=== PATIENT | male | born 1990 | race Two or more races ===

== ENCOUNTER 2018-06-30 08:55 | Emergency (ER) | payer SELFPAY ==
[~2018-06-30] VITALS: Ht 167.6 cm; Wt 72.6 kg
[2018-06-30 09:16] VITALS: BP 131/83
[2018-06-30] MEDS ORDERED: HYDR-3164 PO (09:25)
[2018-06-30] MEDS ORDERED: AMOX500C PO (09:25)
[2018-06-30] MEDS ORDERED: IBUP-1060 PO (09:25)
--- NOTE | 2018-06-30 09:26 | PHYS DOC ---
Adult General Chief Complaint Chief Complaint: DENTAL PROBLEM HPI HPI Patient is a 28 year old M who is here with lower left dental pain and jaw swelling. Pt reports no known dental injury but has had some pain in this tooth for a while. The swelling started over the weekend and feels like it hurts up i nto the ear. Review of Systems Review of Systems Constitutional: Denies fever or chills [] Eyes: Denies change in visual acuity, redness, or eye pain [] HENT: Reports dental and ear pain. Respiratory: Denies cough or shortness of breath [] Cardiovascular: No additional information not addressed in HPI [] GI: Denies abdominal pain, nausea, vomiting, bloody stools or diarrhea [] Musculoskeletal: Denies back pain or joint pain [] Integument: Denies rash or skin lesions [] Neurologic: Denies headache, focal weakness or sensory changes [] All other systems were reviewed and found to be within normal limits, except as documented in this note. Allergies Allergies Allergies Coded Allergies Type Severity Reaction Last Updated Verified No Known Drug Allergies 06/30/18 No Physical Exam Physical Exam Constitutional: Well developed, well nourished, no acute distress, non-toxic appearance. [] HENT: Pt has widespread dental decay. His lower left tooth is carious and gum around tooth is inflamed and indurated. No fluctuance noted. TM normal B Neck: Normal range of motion, no tenderness, supple, no stridor. [] Cardiovascular:Heart rate regular rhythm, no murmur [] Lungs & Thorax: Bilateral breath sounds clear to auscultation [] Abdomen: Bowel sounds normal, soft, no tenderness, no masses, no pulsatile masses. [] Skin: Warm, dry, no erythema, no rash. [] Back: No tenderness, no CVA tenderness. [] Extremities: No tenderness, no cyanosis, no clubbing, ROM intact, no edema. [] Neurologic: Alert and oriented X 3, normal motor function, normal sensory function, no focal deficits noted. [] Psychologic: Affect normal, judgement normal, mood normal. [] Current Patient Data Vital Signs Vital Signs Date Time Temp Pulse Resp B/P (MAP) Pulse Ox O2 Delivery O2 Flow Rate FiO2 06/30/18 09:16 97.7 77 18 131/83 (99) 99 Room Air 97.7 EKG EKG [] Radiology/Procedures Radiology/Procedures [] Course & Med Decision Making Course & Med Decision Making Pertinent Labs and Imaging studies reviewed. (See chart for details) Pt has dental infection with suspected abscess with nothing currently to I&D. Will start antibiotics and pain medicine, push mouthwash or salt water gargles and follow up with dentist. Resources given for local dentists. Lonnie Disclaimer Dragon Disclaimer This electronic medical record was generated, in whole or in part, using a voice recognition dictation system. Departure Departure Impression: Primary Impression: Dental abscess Disposition: HOME, SELF-CARE Condition: STABLE Referrals: NO PCP (PCP) Patient Instructions: Dental Abscess Additional Instructions: Salt water or mouth wash gargles after meals and frequent brushing. You will need to find a dentist for follow up. Scripts Ibuprofen (IBUPROFEN) 800 Mg Tablet 800 MG PO PRN Q8HRS PRN for INFLAMMATION, #20 TAB take with food Prov: JUMA HALL 06/30/18 Hydrocodone/Apap 5-325 (NORCO 5-325 TABLET) 1 Each Tablet 1-2 TAB PO Q4-6HRS, #12 TAB Prov: JUMA HALL 06/30/18 Amoxicillin (AMOXICILLIN) 500 Mg Capsule 2 CAP PO BID, #40 CAP Prov: JUMA HALL 06/30/18 JUMA HALL Jun 30, 2018 09:26
== END 2018-06-30 09:37 | disposition home or self-care (01) ==
LOC: ER 08:55
DX: K04.7 Periapical abscess without sinus (principal); H92.09 Otalgia, unspecified ear
CPT/HCPCS: 99283